=== PATIENT | female | born 1985 | race Caucasian/White ===

== ENCOUNTER 2017-06-01 06:58 | Inpatient (IN) ==
[2017-06-01] MEDS: LACTATED RINGERS 1,000 ML IV SCH ×2 (07:33→13:25)
[2017-06-01] MEDS ORDERED: ONDANSETRON 4 MG/2 ML VIAL IV PRN (07:50)
[2017-06-01] MEDS ORDERED: BUTORPHANOL 2 MG/ML VIAL IV PRN (07:50)
[2017-06-01] MEDS: OXYTOCIN/LR 20 UNIT/1,000 ML BAG IV SCH ×2 (08:13→20:08)
[2017-06-01 08:21] LABS: Basophils % 0.2 % (0.0-0.8); Eosinophils # 0.1 10*3/uL (0.0-0.87); Eosinophils % 0.6 % (0.00-10.9); Hematocrit 30.3 VOL% (35.7-47.0); Hemoglobin 10.1 GM/DL (12.0-16.0); Immature Granulocytes % 0.6 %; Immature Granulocytes Absolute 0.07 #; Lymphocytes # 1.9 10*3/uL (1.4-4.0); Lymphocytes % 15.7 % (21.3-54.2); Mean Corpuscular HGB Conc 33.3 GM/DL (32-36); Mean Corpuscular Hemoglobin 27 PG (27-34); Mean Corpuscular Volume 80.8 FL (87-102); Monocytes # 0.4 10*3/uL (0.11-0.8); Monocytes % 3.2 % (1.7-12.7); Neutrophils # 9.4 10*3/uL (1.4-7.4); Neutrophils % 79.7 % (38.7-73.9); Platelet Count 528 T/CUMM (130-400); Red Blood Count 3.75 MC/CUMM (3.8-5.5); Red Cell Distribution Width 15.5 % (9.3-17.3); White Blood Count 11.8 T/CUMM (4-12)
--- NOTE | 2017-06-01 09:03 | History and Physical Update ---
History and Physical Update - Dictation Physical: refer to scanned H&P - Physical Exam Mental Status: alert and oriented Heart: regular rate and rhythm Lung: clear to auscultation Abdomen: within normal limits Vitals: within normal limits
[2017-06-01 11:15] LABS: Apearance,Urine CLEAR (Clear); Bacteria,Urine Occasional /HPF (Few); Bilirubin,Urine Negative (Negative); Blood, Urine Negative (Negative); Glucose,Urine (UA) Negative (Negative); Ketones,Urine 5 mg/dL (Negative); Mucus,Urine Occasional /LPF (Occasional); Nitrite,Urine Negative (Negative); Protein,Urine Negative; Squamous Epithelial Cell,Urine Occasional /HPF (0-10); Urine Color Yellow (Yellow); Urine Specific Gravity 1.006 (1.001-1.035); Urine Urobilinogen < 2.0 EU/DL (0.2-1.0); WBC,Urine 1 /HPF (0-6)
[2017-06-01 11:23] LABS: Barbiturates Screen,Urine Negative (Negative); Benzodiazepines Screen,Urine Negative (Negative); Cannabinoid Screen,Urine Positive (Negative); Opiate Screen,Urine Negative (Negative); Phencyclidine Screen,Urine Negative (Negative)
[2017-06-01] MEDS ORDERED: PROMETHAZINE 25 MG/1 ML VIAL IM PRN (13:10)
[2017-06-01] MEDS ORDERED: diphenhydrAMINE 50 MG/1 ML VIAL IV PRN (13:10)
[2017-06-01] MEDS ORDERED: ePHEDrine 50 MG/ML AMP IV PRN (13:10)
[2017-06-01] MEDS ORDERED: FAMOTIDINE 20 MG/2 ML VIAL IV ONE (13:10)
[2017-06-01] MEDS ORDERED: CITRIC ACID/SODIUM CITRATE 30 ML UDCUP PO ONE (13:10)
[2017-06-01] MEDS ORDERED: fentaNYL 2 MCG/ROPIV 0.2% EPID 150 ML EPIDURAL SCH (13:10)
--- NOTE | 2017-06-01 14:11 | Event Note ---
Patient is dilated 4-5 cm with 30% effacement and intermediate firmness of the cervix, which is posterior. Head is palpable with forewaters present. These are ruptured and full internal monitoring is inserted without change in heart rate. No evidence of or maternal distress. Satisfactory progress.
[2017-06-01 15:23] LABS: Apearance,Urine CLEAR (Clear); Bilirubin,Urine Negative (Negative); Blood, Urine Negative (Negative); Glucose,Urine (UA) Negative (Negative); Ketones,Urine 80 mg/dL (Negative); Mucus,Urine Occasional /LPF (Occasional); Nitrite,Urine Negative (Negative); Protein,Urine Negative; Squamous Epithelial Cell,Urine Occasional /HPF (0-10); Urine Color Yellow (Yellow); Urine Specific Gravity 1.008 (1.001-1.035); Urine Urobilinogen < 2.0 EU/DL (0.2-1.0); WBC,Urine <1 /HPF (0-6)
[2017-06-01] MEDS ORDERED: BISACODYL 10 MG SUPP RECTAL PRN (17:13)
[2017-06-01] MEDS ORDERED: IBUPROFEN 800 MG TABLET PO PRN (17:13)
[2017-06-01] MEDS ORDERED: LANOLIN 50% CREAM 0.3 OZ TUBE TOP PRN (17:13)
[2017-06-01] MEDS ORDERED: RHO(D) IMMUNE GLOBULIN 300 MCG SYRINGE IM ONE (17:13)
[2017-06-01] MEDS ORDERED: ACETAMINOPHEN 325 MG TABLET PO PRN (17:13)
[2017-06-01] MEDS ORDERED: HYDROCORTISONE 2.5% RECTAL CREAM 30 GM TUBE TOP PRN (17:13)
[2017-06-01] MEDS ORDERED: BENZOCAINE 20%/MENTHOL 0.5% SPRAY 56 GM CAN TOP PRN (17:13)
[2017-06-01] MEDS ORDERED: oxyCODONE/ACETAMINOPHEN 5-325 MG TABLET PO PRN ×2 (17:13)
[2017-06-01] MEDS ORDERED: WITCH HAZEL PADS 100/JAR TOP PRN (17:13)
[2017-06-01] MEDS ORDERED: MEASLES/MUMPS/RUBELLA VACCINE 0.5 ML VIAL SUBCUT ONE (17:13)
[2017-06-01] MEDS ORDERED: DIPH/TET/ACEL PERT BOOSTER VACCINE 0.5 ML VIAL IM ONE (17:13)
--- NOTE | 2017-06-01 17:20 | Operative Note ---
Date of procedure: 06/01/17 Pre-op diagnosis: at term with active labor following Pitocin induction Post-op diagnosis: same Procedure: Spontaneous vaginal delivery Anesthesia: epidural Surgeon / Physician: Jerald Low Design Verification Engineer: Krystyna Melendez Estimated blood loss: other (200 cc) Specimens: other (Placenta) Condition: stable Disposition: post procedure unit Results - Labs CBC & BMP: 06/01/17 08:09 Discharge Plan - Discharge Medications No Action HYDROcodone/ACETAMIN 7.5-325 [[place] 7.5-325] 1 tablet PO DAILY Multivitamin () [ Vitamin] 1 tablet PO DAILY Ferrous Sulfate [Iron] 325 mg PO DAILY - Follow Up or Referral - Forms/Instructions
[2017-06-01] MEDS: DOCUSATE SODIUM 100 MG CAPSULE PO SCH (21:15)
[2017-06-02 06:09] LABS: Basophils % 0.2 % (0.0-0.8); Eosinophils # 0.1 10*3/uL (0.0-0.87); Eosinophils % 0.6 % (0.00-10.9); Hematocrit 27.1 VOL% (35.7-47.0); Hemoglobin 8.9 GM/DL (12.0-16.0); Immature Granulocytes % 0.5 %; Immature Granulocytes Absolute 0.07 #; Lymphocytes # 2.1 10*3/uL (1.4-4.0); Lymphocytes % 16.6 % (21.3-54.2); Mean Corpuscular HGB Conc 32.8 GM/DL (32-36); Mean Corpuscular Hemoglobin 27 PG (27-34); Mean Corpuscular Volume 80.9 FL (87-102); Mean Platelet Volume 10.1 FL (9.6-12.0); Monocytes # 0.6 10*3/uL (0.11-0.8); Monocytes % 4.3 % (1.7-12.7); Neutrophils % 77.8 % (38.7-73.9); Platelet Count 453 T/CUMM (130-400); Red Blood Count 3.35 MC/CUMM (3.8-5.5); Red Cell Distribution Width 15.3 % (9.3-17.3); White Blood Count 12.9 T/CUMM (4-12)
[2017-06-02] MEDS: DOCUSATE SODIUM 100 MG CAPSULE PO SCH ×3 (07:52→21:42)
--- NOTE | 2017-06-02 11:48 | OB/GYN Progress Note ---
Assessment and Plan (1) care following vaginal delivery Status: Acute Current Visit: Yes INFORMATION TECHNOLOGY PROGRAM MANAGER - PN: Subj Interval history: Day 1 without complaints. Exam INFORMATION TECHNOLOGY PROGRAM MANAGER - Constitutional Vitals: Vital Signs Temp Pulse Resp BP Pulse Ox 06/02/17 11:25 97.6 F 63 20 120/83 98 06/02/17 07:22 97.2 F L 71 20 116/76 97 06/02/17 06:48 18 06/02/17 05:00 18 06/02/17 03:54 97.5 F L 65 20 112/74 99 06/02/17 03:00 18 06/01/17 23:10 97.6 F 67 18 122/76 98 06/01/17 22:10 62 18 111/70 100 06/01/17 21:10 62 20 111/71 100 06/01/17 20:40 65 20 124/75 99 06/01/17 20:10 96.9 F L 63 20 124/69 96 06/01/17 19:10 97.9 F 72 20 111/71 06/01/17 12:00 96.7 F L 56 L 18 109/69 General appearance: no acute distress - Head Head exam: Present: normal inspection - Neck Neck exam: Present: normal inspection - Respiratory Respiratory exam: Absent: accessory muscle use - Cardiovascular Cardiovascular exam: Present: regular rate and rhythm - GI/Abdominal GI/Abdominal exam: Present: normal bowel sounds, soft. Absent: tenderness - Extremities Exam Extremities exam: Present: normal inspection - Back Exam Back exam: Present: normal inspection - Neurological Exam Neurological exam: Present: alert, oriented X3 - Psychiatric Psychiatric exam: Present: normal affect, normal mood - Skin Skin exam: Present: normal color Results - Labs CBC & BMP: 06/02/17 05:17
[2017-06-03 07:22] VITALS: BP 115/72
[2017-06-03] MEDS: DOCUSATE SODIUM 100 MG CAPSULE PO SCH (09:00)
--- NOTE | 2017-06-03 09:59 | Discharge Summary ---
Hospital Course - Hospital Course Hospital Course: Patient was admitted at term for induction due to grandma. He. Injection well , starting Pitocin and completing with amniotomy. Spontaneous vaginal delivery occurred with good Apgars. course has been uneventful. Mother and baby are both being discharged in satisfactory condition to return in 2 weeks. Diagnosis - Discharge Diagnosis (1) care following vaginal delivery Status: Acute Specialty Discharge - Follow Up or Referrals Follow up with: Jerald Low DO [Physician] - Discharge Plan - Discharge Data Disposition: Disch To Home/Self Care Condition at Discharge: Stable Activity: resume usual activities as tolerated Hygiene: may shower Weight Bearing at Discharge: weight bear as tolerated Driving: not until seen by doctor - Discharge Medications No Action HYDROcodone/ACETAMIN 7.5-325 [[place] 7.5-325] 1 tablet PO DAILY Multivitamin () [ Vitamin] 1 tablet PO DAILY Ferrous Sulfate [Iron] 325 mg PO DAILY - Follow Up or Referral Follow Up: Jerald Low DO [Physician] - - Forms/Instructions Instructions: Perineal Care (DC), Vaginal Delivery (DC), Bleeding (DC) Exam - Constitutional Vitals: Period Temp Pulse Resp BP Sys/Bay Pulse Ox Last 24 Hr 96.9 F-97.8 F 57-68 16-20 108-134/67-88 98-100 General appearance: no acute distress - Head Head exam: Present: normal inspection - Respiratory Respiratory exam: Present: clear to auscultation bilaterally. Absent: accessory muscle use - Cardiovascular Cardiovascular exam: Present: regular rate and rhythm - GI/Abdominal GI/Abdominal exam: Present: soft. Absent: tenderness - Extremities Exam Extremities exam: Present: normal inspection - Back Exam Back exam: Present: normal inspection - Neurological Exam Neurological exam: Present: alert - Psychiatric Psychiatric exam: Present: normal affect - Skin Skin exam: Present: normal color DS: Provider Date of admission: 06/01/17 07:50 Attending physician on admission: Jerald Low DO Consults: 06/01/17 07:50 Consult to Anesthesiology [CONS] Routine Consulting Provider: Reason for Anesthesiology: Epidural Consult Comment: Epidural for pain managment 06/01/17 17:16 Consult to Health Researcher [CONS] Routine Consult Health Researcher: Breast Feeding 06/02/17 07:01 Consult to Case Mgmt/Social Srvs [CONS] Routine Reason for Case Mgmt/Social Srvs: Other Consult Comment: hx of THC use Discharging clinician: Jerald Low DO Expected date of discharge: 06/03/17
== END 2017-06-03 12:00 | disposition home or self-care (01) | DRG 560 ==
LOC: N.LDOUT 06:58 → N.LD 07:00 → N.OB 21:07
PROVIDERS: ADMIT Obstetrics & Gynecology; ATTEND Obstetrics & Gynecology

== ENCOUNTER 2019-07-21 10:01 | Inpatient (IN) ==
[2019-07-21] MEDS ORDERED: SODIUM CHLORIDE 0.9% 1,000 ML IV STA (10:26)
[2019-07-21] MEDS ORDERED: METOCLOPRAMIDE 10 MG/2 ML VIAL IV STA (10:26)
[2019-07-21] MEDS ORDERED: DICYCLOMINE 20 MG/2 ML AMP IM ONE (10:26)
[2019-07-21] MEDS ORDERED: PANTOPRAZOLE 40 MG VIAL IV STA (10:26)
[2019-07-21] MEDS ORDERED: ONDANSETRON 4 MG/2 ML VIAL IV STA ×3 (10:26→13:09)
[2019-07-21 11:03] LABS: Basophils % 0.1 % (0.0-0.8); Hematocrit 34.1 VOL% (35.7-47.0); Immature Granulocytes % 1.1 %; Immature Granulocytes Absolute 0.29 #; Lymphocytes # 1.1 10*3/uL (1.4-4.0); Lymphocytes % 4.1 % (21.3-54.2); Mean Corpuscular HGB Conc 32.3 GM/DL (32-36); Mean Corpuscular Volume 84.4 FL (87-102); Mean Platelet Volume 10.2 FL (9.6-12.0); Monocytes % 1.7 % (1.7-12.7); Platelet Count 357 T/CUMM (130-400); Red Blood Count 4.04 MC/CUMM (3.8-5.5); White Blood Count 26.5 T/CUMM (4-12)
[2019-07-21 11:06] LABS: Apearance,Urine Slightly Hazy (Clear); Bilirubin,Urine Negative (Negative); Blood, Urine Large mg/dL (Negative); Glucose,Urine (UA) Negative (Negative); Ketones,Urine Negative (Negative); Mucus,Urine Many /LPF (Occasional); Nitrite,Urine Negative (Negative); Protein,Urine 30 MG/DL; RBC,Urine 83 /HPF (0-4); Squamous Epithelial Cell,Urine Occasional /HPF (0-10); Urine Color Amber (Yellow); Urine Specific Gravity 1.016 (1.001-1.035); WBC,Urine <1 /HPF (0-6)
[2019-07-21 11:17] LABS: Alanine Aminotransferase 12 U/L (13-56); Albumin 3.3 G/DL (3.4-5.0); Alkaline Phosphatase 85 U/L (45-117); Amylase 23 U/L (25-115); Aspartate Amino Transferase 6 U/L (0-37); Blood Urea Nitrogen 4 MG/DL (7-18); Calcium 8.6 MG/DL (8.5-10.1); Estimated Glom Filtration Rate 124 ML/MIN; Glucose 117 MG/DL (74-106); Osmolality,Calculated 267.1 MOS/KG (273-304); Total Protein 7.5 G/DL (6.4-8.3); Troponin I < 0.015 NG/ML (0.00-0.045)
[2019-07-21] MEDS ORDERED: POTASSIUM BICARB EFFERVESCENT 25 MEQ TABLET PO ONE (11:23)
[2019-07-21 11:27] LABS: Band Neutrophils 2 % (0-10); Hypochromasia 1+; Lymphocytes 5 % (20-55); Platelet Estimate Adequate; Segmented Neutrophils 91 % (50-85); Total Cells Counted 100
[2019-07-21] MEDS ORDERED: cefTRIAXone 1,000 MG in SODIUM CHLORIDE 0.9% 100 ML IV STA (11:38)
[2019-07-21] MEDS ORDERED: metroNIDAZOLE INJ 500 MG in PREMIX 1 EACH IV STA (11:38)
[2019-07-21] MEDS ORDERED: fentaNYL 100 MCG/2 ML VIAL ONE ×3 (11:54→18:18)
[2019-07-21] MEDS ORDERED: fentaNYL 100 MCG/2 ML VIAL IV STA (11:54)
[2019-07-21] MEDS ORDERED: LACTATED RINGERS 1,000 ML IV ONE ×2 (14:31→23:55)
[2019-07-21] MEDS: POTASSIUM CHLORIDE RIDER 10 MEQ in PREMIX 1 EACH IV SCH ×4 (15:18→22:30)
[2019-07-21] MEDS ORDERED: cefOXitin 2,000 MG in SYRINGE 1 EACH IV ONE (15:28)
[2019-07-21] MEDS ORDERED: ONDANSETRON 4 MG/2 ML VIAL IV PRN (15:30)
[2019-07-21] MEDS ORDERED: HYDROmorphone 2 MG/1 ML VIAL IV PRN (15:30)
[2019-07-21] MEDS ORDERED: ACETAMINOPHEN 325 MG TABLET PO PRN (15:30)
[2019-07-21] MEDS ORDERED: KETOROLAC 15 MG/1 ML VIAL IV PRN (15:30)
[2019-07-21] MEDS ORDERED: PROPOFOL 200 MG/20 ML VIAL IV ONE (15:44)
[2019-07-21] MEDS ORDERED: LIDOCAINE 2% 5 ML VIAL ONE (15:44)
[2019-07-21] MEDS ORDERED: DEXAMETHASONE 4 MG/1 ML VIAL ONE (15:44)
[2019-07-21] MEDS ORDERED: MIDAZOLAM 2 MG/2 ML VIAL ONE (15:44)
[2019-07-21] MEDS ORDERED: ONDANSETRON 4 MG/2 ML VIAL ONE (15:44)
[2019-07-21] MEDS ORDERED: KETOROLAC 30 MG/1 ML VIAL ONE (15:45)
[2019-07-21] MEDS ORDERED: ROCURONIUM 100 MG/10 ML VIAL IV ONE (15:45)
[2019-07-21] MEDS ORDERED: GLYCOPYRROLATE 0.4 MG/2 ML VIAL ONE (15:45)
[2019-07-21] MEDS ORDERED: NEOSTIGMINE 10 MG/10 ML VIAL ONE (15:45)
[2019-07-21] MEDS ORDERED: SUCCINYLCHOLINE 200 MG/10 ML VIAL ONE (15:45)
[2019-07-21] MEDS ORDERED: PIPERACILLIN/TAZOBACTAM 3,375 MG in SODIUM CHLORIDE 0.9% 100 ML IV ONE (16:54)
[2019-07-21] MEDS ORDERED: TISSUE ADHESIVE 1 EACH APPLICATOR TOP ONE (17:46)
[2019-07-21] MEDS ORDERED: ALBUMIN 5% 12.5 GM/250 ML VIAL IV ONE (18:18)
[2019-07-21] MEDS: LACTATED RINGERS 1,000 ML IV SCH (19:05)
[2019-07-21] MEDS: PIPERACILLIN/TAZOBACTAM 3,375 MG in SODIUM CHLORIDE 0.9% 100 ML IV SCH (23:50)
[2019-07-22] MEDS: LACTATED RINGERS 1,000 ML IV SCH ×3 (00:49→20:56)
[2019-07-22 05:17] LABS: Basophils % 0.1 % (0.0-0.8); Hematocrit 28.8 VOL% (35.7-47.0); Hemoglobin 9.1 GM/DL (12.0-16.0); Immature Granulocytes % 0.7 %; Immature Granulocytes Absolute 0.07 #; Lymphocytes # 0.8 10*3/uL (1.4-4.0); Lymphocytes % 7.6 % (21.3-54.2); Mean Corpuscular HGB Conc 31.6 GM/DL (32-36); Mean Corpuscular Volume 86.7 FL (87-102); Mean Platelet Volume 10.1 FL (9.6-12.0); Monocytes % 1.2 % (1.7-12.7); Neutrophils % 90.4 % (38.7-73.9); Platelet Count 301 T/CUMM (130-400); Red Blood Count 3.32 MC/CUMM (3.8-5.5); Red Cell Distribution Width 14.3 % (9.3-17.3); White Blood Count 9.9 T/CUMM (4-12)
[2019-07-22 05:44] LABS: Albumin 2.6 G/DL (3.4-5.0); Bilirubin,Total 0.5 MG/DL (0.2-1.0); Calcium 8.3 MG/DL (8.5-10.1)
[2019-07-22] MEDS: PIPERACILLIN/TAZOBACTAM 3,375 MG in SODIUM CHLORIDE 0.9% 100 ML IV SCH ×3 (07:05→22:57)
[2019-07-22] MEDS: PANTOPRAZOLE 40 MG TABLET PO SCH (08:38)
[2019-07-22 14:50] LABS: Basophils % 0.1 % (0.0-0.8); Hematocrit 28.3 VOL% (35.7-47.0); Immature Granulocytes % 0.6 %; Lymphocytes # 1.3 10*3/uL (1.4-4.0); Lymphocytes % 8.3 % (21.3-54.2); Mean Corpuscular HGB Conc 31.8 GM/DL (32-36); Mean Corpuscular Volume 85.8 FL (87-102); Mean Platelet Volume 10.3 FL (9.6-12.0); Monocytes % 3.4 % (1.7-12.7); Neutrophils % 87.6 % (38.7-73.9); Platelet Count 369 T/CUMM (130-400); Red Cell Distribution Width 14.5 % (9.3-17.3)
[2019-07-23 05:07] LABS: Basophils % 0.2 % (0.0-0.8); Eosinophils % 0.2 % (0.00-10.9); Hematocrit 27.5 VOL% (35.7-47.0); Hemoglobin 8.6 GM/DL (12.0-16.0); Immature Granulocytes % 0.6 %; Immature Granulocytes Absolute 0.09 #; Lymphocytes # 3.2 10*3/uL (1.4-4.0); Lymphocytes % 23.2 % (21.3-54.2); Mean Corpuscular HGB Conc 31.3 GM/DL (32-36); Mean Corpuscular Volume 86.2 FL (87-102); Mean Platelet Volume 10.2 FL (9.6-12.0); Monocytes % 4.1 % (1.7-12.7); Neutrophils % 71.7 % (38.7-73.9); Platelet Count 370 T/CUMM (130-400); Red Blood Count 3.19 MC/CUMM (3.8-5.5); Red Cell Distribution Width 14.4 % (9.3-17.3); White Blood Count 13.9 T/CUMM (4-12)
[2019-07-23 05:42] LABS: Calcium 8.5 MG/DL (8.5-10.1); Osmolality,Calculated 289.4 MOS/KG (273-304)
[2019-07-23] MEDS: PIPERACILLIN/TAZOBACTAM 3,375 MG in SODIUM CHLORIDE 0.9% 100 ML IV SCH (06:42)
[2019-07-23 08:23] VITALS: BP 106/68
[2019-07-23] MEDS: PANTOPRAZOLE 40 MG TABLET PO SCH (08:40)
== END 2019-07-23 11:00 | disposition home or self-care (01) | DRG 234 ==
LOC: N.ED 10:01 → N.EDINP 15:30 → N.3E 16:06
PROVIDERS: ADMIT Student in an Organized Health Care Education/Training Program; ATTEND Student in an Organized Health Care Education/Training Program

== ENCOUNTER 2020-11-01 10:39 | Inpatient (IN) ==
[2020-11-01] MEDS ORDERED: ceFAZolin 2,000 MG in PREMIX 1 EACH IV ONE (11:10)
[2020-11-01] MEDS ORDERED: CITRIC ACID/SODIUM CITRATE 30 ML UDCUP PO ONE (11:10)
[2020-11-01] MEDS ORDERED: FAMOTIDINE 20 MG/2 ML VIAL IV ONE (11:10)
[2020-11-01] MEDS ORDERED: OXYTOCIN 10 UNIT/ML VIAL IM ONE (11:12)
[2020-11-01 11:29] LABS: Basophils % 0.2 % (0.0-0.8); Eosinophils % 0.3 % (0.00-10.9); Hematocrit 30.2 VOL% (35.7-47.0); Hemoglobin 9.7 GM/DL (12.0-16.0); Immature Granulocytes % 0.7 %; Immature Granulocytes Absolute 0.08 #; Lymphocytes % 17.8 % (21.3-54.2); Mean Corpuscular HGB Conc 32.1 GM/DL (32-36); Mean Corpuscular Volume 78.4 FL (87-102); Mean Platelet Volume 9.8 FL (9.6-12.0); Monocytes % 4.6 % (1.7-12.7); Neutrophils % 76.4 % (38.7-73.9); Platelet Count 505 T/CUMM (130-400); Red Blood Count 3.85 MC/CUMM (3.8-5.5); Red Cell Distribution Width 14.7 % (9.3-17.3); White Blood Count 11.1 T/CUMM (4-12)
[2020-11-01] MEDS ORDERED: LACTATED RINGERS 1,000 ML IV SCH ×2 (11:30→15:30)
[2020-11-01 11:53] LABS: Alanine Aminotransferase 13 U/L (13-56); Albumin 2.6 G/DL (3.4-5.0); Alkaline Phosphatase 195 U/L (45-117); Aspartate Amino Transferase 15 U/L (0-37); Bilirubin,Total < 0.39 MG/DL (0.2-1.0); Blood Urea Nitrogen 4 MG/DL (7-18); Calcium 8.5 MG/DL (8.5-10.1); Estimated Glom Filtration Rate 146 ML/MIN; Glucose 85 MG/DL (74-106); Osmolality,Calculated 270.7 MOS/KG (273-304); Total Protein 7.1 G/DL (6.4-8.3)
[2020-11-01] MEDS ORDERED: OXYTOCIN/LR 20 UNIT/1,000 ML BAG IV ONE ×2 (13:27→15:04)
[2020-11-01] MEDS ORDERED: BUPIVACAINE MPF 0.5% /EPI 30 ML VIAL ONE (13:33)
[2020-11-01] MEDS ORDERED: BUPIVACAINE SPINAL 0.75% 2 ML AMP SPINAL ONE (13:33)
[2020-11-01] MEDS ORDERED: MORPHINE 10 MG/10 ML VIAL ONE (13:34)
[2020-11-01 14:05] LABS: Hepatitis B Surface Ag Quant < 0.10 Index; Hepatitis B Surface Ag Result Negative (Negative)
[2020-11-01] MEDS ORDERED: ONDANSETRON 4 MG/2 ML VIAL ONE (14:53)
[2020-11-01] MEDS ORDERED: DEXAMETHASONE 4 MG/1 ML VIAL ONE (14:53)
[2020-11-01] MEDS ORDERED: PHENYLEPHRINE 1 MG/10 ML SYRINGE IV ONE (14:53)
[2020-11-01] MEDS ORDERED: ACETAMINOPHEN 325 MG TABLET PO PRN (15:04)
[2020-11-01] MEDS ORDERED: ONDANSETRON 4 MG/2 ML VIAL IV PRN (15:04)
[2020-11-01] MEDS ORDERED: MAGNESIUM HYDROXIDE SUSP 30 ML UDCUP PO PRN (15:04)
[2020-11-01] MEDS ORDERED: IBUPROFEN 800 MG TABLET PO PRN (15:04)
[2020-11-01] MEDS ORDERED: RHO(D) IMMUNE GLOBULIN 300 MCG SYRINGE IM ONE ×2 (15:04→15:30)
[2020-11-01] MEDS ORDERED: SIMETHICONE CHEW 80 MG TABLET PO PRN (15:04)
[2020-11-01 15:10] LABS: Bilirubin,Urine Negative (Negative); Blood, Urine Negative (Negative); Glucose,Urine (UA) Negative (Negative); Ketones,Urine 20 mg/dL (Negative); Mucus,Urine Occasional /LPF (Occasional); Nitrite,Urine Negative (Negative); Protein,Urine Negative; RBC,Urine <1 /HPF (0-4); Squamous Epithelial Cell,Urine Occasional /HPF (0-10); Urine Appearance CLEAR (Clear); Urine Color Yellow (Yellow); Urine Urobilinogen < 2.0 EU/DL (0.2-1.0); WBC,Urine 1 /HPF (0-6)
[2020-11-01 15:21] LABS: Cord Venous Blood HCO3 29.1 MMOL/L; Cord Venous Blood PCO2 50.1 MMHG; Cord Venous Blood PO2 26.3 MMHG
[2020-11-01] MEDS ORDERED: ceFAZolin 1,000 MG in SYRINGE 1 EACH IV SCH (19:00)
[2020-11-01 22:19] LABS: Basophils % 0.1 % (0.0-0.8); Hematocrit 28.3 VOL% (35.7-47.0); Hemoglobin 9.1 GM/DL (12.0-16.0); Immature Granulocytes % 0.6 %; Lymphocytes # 1.2 10*3/uL (1.4-4.0); Lymphocytes % 6.7 % (21.3-54.2); Mean Corpuscular HGB Conc 32.2 GM/DL (32-36); Mean Corpuscular Volume 77.5 FL (87-102); Mean Platelet Volume 9.6 FL (9.6-12.0); Monocytes % 1.4 % (1.7-12.7); Neutrophils % 91.2 % (38.7-73.9); Platelet Count 469 T/CUMM (130-400); Red Blood Count 3.65 MC/CUMM (3.8-5.5); Red Cell Distribution Width 14.5 % (9.3-17.3); White Blood Count 17.4 T/CUMM (4-12)
[2020-11-01] MEDS: ceFAZolin 1,000 MG in SYRINGE 1 EACH IV SCH (22:24)
[2020-11-02 04:23] LABS: Band Neutrophils 3 % (0-10); Hypochromasia 1+; Lymphocytes 5 % (20-55); Microcytosis 1+; Platelet Estimate Increased; Segmented Neutrophils 90 % (50-85); Total Cells Counted 100
[2020-11-02] MEDS: ceFAZolin 1,000 MG in SYRINGE 1 EACH IV SCH (06:20)
[2020-11-02 06:49] LABS: Basophils % 0.1 % (0.0-0.8); Eosinophils % 0.1 % (0.00-10.9); Immature Granulocytes % 0.8 %; Immature Granulocytes Absolute 0.14 #; Lymphocytes # 2.2 10*3/uL (1.4-4.0); Lymphocytes % 13.2 % (21.3-54.2); Mean Corpuscular Volume 78.6 FL (87-102); Mean Platelet Volume 9.9 FL (9.6-12.0); Monocytes % 5.8 % (1.7-12.7); Platelet Count 419 T/CUMM (130-400); Red Blood Count 3.18 MC/CUMM (3.8-5.5); Red Cell Distribution Width 14.5 % (9.3-17.3); White Blood Count 16.8 T/CUMM (4-12)
[2020-11-02] MEDS: FERROUS SULFATE 325 MG TABLET PO SCH ×2 (08:53→21:53)
[2020-11-02] MEDS: DOCUSATE SODIUM 100 MG CAPSULE PO SCH ×2 (08:53→21:53)
[2020-11-02] MEDS ORDERED: MULTIVITAMIN (PRENATAL) TABLET PO SCH (09:00)
[2020-11-02] MEDS: POTASSIUM CHLORIDE 20 MEQ TABLET PO PRN (22:40)
[2020-11-03] MEDS: POTASSIUM CHLORIDE 20 MEQ TABLET PO PRN ×2 (00:53→02:44)
[2020-11-03] MEDS: METOCLOPRAMIDE 10 MG TABLET PO SCH ×2 (02:44→08:59)
[2020-11-03] MEDS: FERROUS SULFATE 325 MG TABLET PO SCH (08:59)
[2020-11-03] MEDS: DOCUSATE SODIUM 100 MG CAPSULE PO SCH (08:59)
[2020-11-03] MEDS ORDERED: INFLUENZA VIRUS VACCINE 0.5 ML SYRINGE IM ONE (12:06)
[2020-11-03 12:35] VITALS: BP 119/83
== END 2020-11-03 14:35 | disposition home or self-care (01) | DRG 540 ==
LOC: N.LD 10:39 → N.OB 20:14
PROVIDERS: ADMIT Obstetrics & Gynecology; ATTEND Obstetrics & Gynecology
PROC: LDCSECT (ICD-10-PCS; 2020-11-01 12:45)